=== PATIENT | male | born 1960 | race Caucasian/White ===

== ENCOUNTER 2023-10-27 12:59 | Inpatient (IN) | payer MEDICARE ==
[~2023-10-27] VITALS: Ht 188 cm; Wt 113.0 kg
[2023-10-27] VITALS (21 sets, daily range): BP systolic 105–165; BP diastolic 65–112; PULSE 73–123; RESP 10–19; TEMP 97.9–98.2; O2SAT 92–99
[2023-10-27] MEDS: cefazolin 2gm/D5W 100mL 100 ML IV ONE (11:20)
[2023-10-27] MEDS: pneumococcal 23-VAL P-sac vacc 25 mcg/0.5ml vial IMVAC ONE (12:10)
[~2023-10-27 12:59] MED LIST: FLO0.4C PO; NAPR220C15 PO; PER10325T PO
[2023-10-27 13:47] LABS: BASOPHILS # (AUTO) 0.1 X10'3 (0-0.2); BASOPHILS % (AUTO) 0.8 % (0-1); EOSINOPHILS # (AUTO) 0.2 X10'3 (0-0.9); LYMPHOCYTES % (AUTO) 30.1 % (21-51); MEAN CORPUSCULAR HEMOGLOBIN 29.1 PG (27.0-31.0); MEAN CORPUSCULAR HGB CONC 33.7 g/dL (33.0-36.5); MEAN CORPUSCULAR VOLUME 86.3 FL (78-98); MEAN PLATELET VOLUME 7.5 FL (7.4-10.4); MONOCYTES # (AUTO) 0.6 X10'3 (0-0.9); MONOCYTES % (AUTO) 9.3 % (2-12); NEUTROPHILS # (AUTO) 3.8 X10'3 (1.8-7.7); NEUTROPHILS % (AUTO) 56.8 % (42-75); PRE OP HEMOGLOBIN 14.9 g/dL (14.0-17.9); PRE OP PLATELET COUNT 218 X10'3 (140-440); PRE OP WHITE BLOOD COUNT 6.7 10'3 (4.8-10.8); RED BLOOD COUNT 5.11 X10'6 (4.70-6.10); RED CELL DISTRIBUTION WIDTH 13.8 % (11.5-14.5)
[2023-10-27 13:56] LABS: ALBUMIN 3.7 G/DL (3.4-5.0); ALBUMIN/GLOBULIN RATIO 0.8 (1.1-1.5); ALKALINE PHOSPHATASE 81 IU/L (46-116); BLOOD UREA NITROGEN 12 MG/DL (7-18); BUN/CREATININE RATIO 12.4 (10.0-20.0); CALCIUM 8.4 MG/DL (8.5-10.1); CHLORIDE 103 MMOL/L (99-107); CREATININE 0.97 MG/DL (0.60-1.10); PRE OP ALT 26 U/L (30-65); PRE OP ANION GAP 10 (8-16); PRE OP AST 22 U/L (10-37); PRE OP BILIRUB, TOTAL 0.8 MG/DL (0.0-1.0); PRE OP GLUCOSE 89 MG/DL (70-104); PRE OP POTASSIUM 3.8 MMOL/L (3.4-5.1); PRE OP SODIUM 137 MMOL/L (135-145); TOTAL CARBON DIOXIDE 24.4 MMOL/L (24-32); TOTAL PROTEIN 8.1 G/DL (6.4-8.2); eCRCL 88 ML/MIN; eGFR 78 ML/MIN
[2023-10-27] MEDS ORDERED: BUPIVAcaine/PF 2.5mg/ml (0.25%) 10ml vial ONE (14:54)
[2023-10-27] MEDS ORDERED: bacitracin 15gm ointment TP ONE (14:54)
[2023-10-27] MEDS ORDERED: oxyCODONE/APAP 10/325mg tablet PO ONE (15:40)
[2023-10-27] MEDS: oxyCODONE/APAP 10/325mg tablet PO ONE (15:48)
[2023-10-27] MEDS ORDERED: BUPIVAcaine 0.5% inj/PF 30 ML ONE (16:03)
[2023-10-27] MEDS ORDERED: BUPIVACAINE liposomal/PF 13.3 MG/ML vial IM ONE (16:03)
[2023-10-27] MEDS ORDERED: sevoflurane 250ml liquid IH ONE (16:07)
[2023-10-27] MEDS ORDERED: ROPIVAcaine 0.5% (5mg/ml) 30ml vial ONE (16:11)
[2023-10-27] MEDS ORDERED: LIDOcaine 2% (20mg/ml) 5ml vial ONE (16:12)
[2023-10-27] MEDS ORDERED: fentaNYL/PF 50MCG/1 ML 2ML syringe ONE (16:12)
[2023-10-27] MEDS ORDERED: dexamethasone sod phosphate 4mg/ml inj. ONE (16:12)
[2023-10-27] MEDS ORDERED: propofol inj 20 ML IV ONE (16:12)
[2023-10-27] MEDS ORDERED: midazolam 1 mg/ML 2ml injection ONE (16:14)
[2023-10-27] MEDS ORDERED: ondansetron/PF 4mg/2ml inj ONE (16:21)
[2023-10-27] MEDS: vancomycin 1,000mg inj ONE ×2 (16:54→17:06)
[2023-10-27] MEDS ORDERED: acetaminophen 1,000mg/100ml IV 100 ML IV ONE (16:59)
[2023-10-27] MEDS ORDERED: HYDROcodone/acetaminophen 10/325mg tab PO PRN (17:25)
[2023-10-27] MEDS ORDERED: ondansetron/PF 4mg/2ml inj IV PRN ×2 (17:25→18:00)
[2023-10-27] MEDS ORDERED: naloxone 0.4 mg/ml inj IV PRN (17:25)
[2023-10-27] MEDS: ringers solution, lacted 1,000 ML IV SCH ×2 (18:00→22:31)
[2023-10-27] MEDS ORDERED: fentaNYL/PF 50MCG/1 ML 2ML syringe IV PRN (18:00)
[2023-10-27] MEDS ORDERED: HYDROmorphone/PF 0.2 MG/ML SYRINGE IV PRN (18:00)
[2023-10-27] MEDS ORDERED: labetalol 20mg/4ml (5mg/ml) syringe IV PRN (18:00)
[2023-10-27] MEDS ORDERED: ROPIVAcaine 0.2% (10 MG/5 ML) BOLUS INJECTION POPLITEAL PRN (18:00)
[2023-10-27] MEDS ORDERED: hydrALAZINE 20mg/ml inj. IV PRN (18:00)
[2023-10-27] MEDS: fentaNYL/PF 50MCG/1 ML 2ML syringe IV PRN (18:21)
[2023-10-27] MEDS: HYDROcodone/acetaminophen 10/325mg tab PO STA (18:40)
[2023-10-27] MEDS: ROPIVAcaine 0.2%/PF PUMP/bolus 545 ML POPLITEAL SCH (18:46)
[2023-10-27] MEDS: HYDROmorphone/PF 0.2 MG/ML SYRINGE IV PRN (18:51)
[2023-10-27] MEDS: vancomycin/NS 1 GM ADD-VANTAGE 250 ML IV SCH (20:00)
[2023-10-27] MEDS: HYDROcodone/acetaminophen 10/325mg tab PO PRN (22:51)
[2023-10-28] MEDS: cefepime 2g/NS 100ml ADVANTAGE 100 ML IV SCH (00:15)
[2023-10-28 04:00] VITALS: BP 127/60; PULSE 94; RESP 12; TEMP 99; O2SAT 94
[2023-10-28 06:00] VITALS: BP 137/63; PULSE 87; RESP 14; TEMP 97.4; O2SAT 97
[2023-10-28 10:00] VITALS: BP 114/57; PULSE 81; RESP 18; TEMP 98.2; O2SAT 93
[2023-10-28] MEDS: FLU VACC QS2023-24(6MOS UP)/PF 60 MCG/0.5 ML SYRINGE IM ONE (13:20)
[2023-10-28] MEDS: pneumococcal 23-VAL P-sac vacc 25 mcg/0.5ml vial IMVAC ONE (13:20)
[2023-10-28] MEDS: JUVEN Shake w/Arg/Glut/Ca2+Bmb (Juven 19.3gm) pkt 240ml PO SCH (13:21)
[2023-10-28] MEDS: cefazolin 2gm/D5W 100mL 100 ML IV SCH (16:26)
[2023-10-28] MEDS ORDERED: vancomycin/NS 1 GM ADD-VANTAGE 250 ML IV SCH (17:00)
[2023-10-28 18:00] VITALS: BP 135/80; PULSE 65; RESP 17; TEMP 97.7; O2SAT 96
[2023-10-28 20:00] VITALS: RESP 17; O2SAT 96
[2023-10-28 22:00] VITALS: BP 117/66; PULSE 69; RESP 20; TEMP 97.3; O2SAT 96
[2023-10-29 06:00] VITALS: BP 122/73; PULSE 67; RESP 18; TEMP 96.8; O2SAT 96
[2023-10-29] MEDS ORDERED: VANCOMYCIN LEVEL IV ONE (08:30)
[2023-10-29 08:45] VITALS: RESP 16
[2023-10-29 10:00] VITALS: BP 151/84; PULSE 75; RESP 17; TEMP 98.2; O2SAT 97
[2023-10-29 15:49] VITALS: RESP 16
[2023-10-29] MEDS: HYDROcodone/acetaminophen 10/325mg tab PO PRN (15:49)
== END 2023-10-29 16:10 | disposition home health service (06) | DRG 857 ==
LOC: PAS 12:59 → SUR 3N 17:28 → PAS 17:28 → SUR 3N 20:53
PROVIDERS: ADMIT Podiatrist Foot & Ankle Surgery; ATTEND Podiatrist Foot & Ankle Surgery
PROC: 0QBJ0ZX Excision of Right Fibula, Open Approach, Diagnostic (ICD-10-PCS; 2023-10-27)
PROC: 0SPF04Z Removal of Internal Fixation Device from Right Ankle Joint, Open Approach (ICD-10-PCS; principal; 2023-10-27 16:07)
PROC: 02HV33Z Insertion of Infusion Device into Superior Vena Cava, Percutaneous Approach (ICD-10-PCS; 2023-10-28)
DX: T81.49XA Infection following a procedure, other surgical site, initial encounter (principal); T81.30XA Disruption of wound, unspecified, initial encounter; T84.59XA Infection and inflammatory reaction due to other internal joint prosthesis, initial encounter; M76.821 Posterior tibial tendinitis, right leg; M20.21 Hallux rigidus, right foot; M25.371 Other instability, right ankle; X58.XXXA Exposure to other specified factors, initial encounter; Y83.8 Other surgical procedures as the cause of abnormal reaction of the patient, or of later complication, without mention of misadventure at the time of the procedure; Z88.5 Allergy status to narcotic agent; Z88.8 Allergy status to other drugs, medicaments and biological substances; Y92.89 Other specified places as the place of occurrence of the external cause
CPT/HCPCS: 36415; 36569; 76942; 80053; 83036; 85025; 87070; 87075; 87077; 87081; 87186; 88305; 88311; 90686; 90732; 93005; 97161; 97530; A4618; A6449; A7000; C1751; C9290; G0378; J0131; J0360; J0690; J0692; J1100; J1170; J2250; J2405; J2704; J2795; J3010; J3370; J3490; J7120; S0020

== ENCOUNTER 2024-12-11 13:15 | Outpatient (CLI) | payer MEDICARE, OTHER ==
--- NOTE | 2024-12-11 16:39 | RADIOLOGY REPORT ---
CLINICAL INDICATION: EFFUSION, RIGHT ANKLE TECHNIQUE: Noncontrast CT of the right ankle was performed. Sagittal and coronal reformatted images a re provided. COMPARISON: Right foot radiographs 10/04/2023 CT Dose: CTDI volume is 16.4 mGy. Dose-length product is 60.7 mGy*cm FINDINGS: No fracture or dislocation. There is an intramedullary augustine across the tibiotalar joint anitra ersing the distal tibia, talus and calcaneus compatible with arthrodesis. There is a screw in the ca lcaneus. There is a about 25% fusion across the tibiotalar joint. The intramedullary nail is fracture d at the level of the talus. Multiple lucencies are demonstrated in the posterior aspect of the talu s and the calcaneus which could reflect osteomyelitis. There is fluid collection in the lateral ankle containing foci of gas. Fluid collection measures 8.7 cm AP by 3.6 cm transverse by 6.5 cm cranioca udal and extends to the distal tibia. Lateral soft tissue thickening noted. The contralateral ankle is included and demonstrates no acute osseous or soft tissue abnormality. IMPRESSION: 1. 8.7 cm fluid collection in the lateral ankle soft tissue gas highly suspicious for abscess. 2. 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 HS:Y All CT scans at this medical facility are performed using dose modulation techniques as appropriate t o a performed exam including the following: Automated exposure control was utilized; adjustment of th e MA and/or KV according to patient size; and use of iterative reconstruction technique.
== END 2024-12-11 23:59 | disposition home or self-care (01) ==
LOC: RAD 13:15
PROVIDERS: ATTEND Podiatrist Foot & Ankle Surgery
DX: M19.071 Primary osteoarthritis, right ankle and foot (principal); M25.471 Effusion, right ankle; M20.21 Hallux rigidus, right foot; M76.821 Posterior tibial tendinitis, right leg; M25.371 Other instability, right ankle; N39.0 Urinary tract infection, site not specified; Z98.1 Arthrodesis status; Z98.890 Other specified postprocedural states
CPT/HCPCS: 73700